=== PATIENT | male | born 1980 | race Caucasian/White ===

== ENCOUNTER 2023-02-11 22:20 | Inpatient (IN) | payer MEDICAID ==
[~2023-02-11] VITALS: Ht 177.8 cm; Wt 63.0 kg
[2023-02-11] MEDS ORDERED: LORAZEPAM 2MG/ML CPJ IV ONE (23:00)
[2023-02-11] MEDS ORDERED: SODIUM CHLORIDE 0.9% 1,000 ML IV ONE (23:00)
[2023-02-11 23:03] LABS: BASOPHILS % 1.4 % (0.0-2.0); EOSINOPHILS % 0.1 % (0.0-5.0); HEMATOCRIT. 40.8 % (42.0-52.0); HEMOGLOBIN. 13.5 g/dL (14.0-18.0); LYMPHOCYTES % 13.3 % (20.0-50.0); MEAN CORPUSCULAR VOLUME 96.4 fL (80.0-94.0); MEAN PLATELET VOLUME 10.2 fl (7.4-10.4); MONOCYTES % 13.4 % (2.0-8.0); NEUTROPHILS % 71.8 % (40.0-76.0); PLATELET 78 x1000/uL (130-400); RED BLOOD CELL COUNT 4.23 mill/uL (4.7-6.1); RED CELL DISTRIBUTION WIDTH 16.2 % (11.6-14.6)
[2023-02-11 23:08] LABS: CHLORIDE 93 mEq/L (98-107)
[2023-02-11 23:15] LABS: ETHANOL BLOOD < 10 mg/dL
[2023-02-11] MEDS ORDERED: POTASSIUM CHLORIDE 20MEQ/PACKET PO NR (23:30)
[2023-02-12] MEDS ORDERED: LORAZEPAM 2MG/ML CPJ IV ONE (01:45)
[2023-02-12] MEDS ORDERED: FOLIC ACID 1 MG, THIAMINE HCL 100 MG, MVI, ADULT NO.1 10 ML in DEXTROSE 5% WATER 1,000 ML IV ONE ×4 (01:45)
[2023-02-12] MEDS ORDERED: LEVETIRACETAM 1,500 MG in SODIUM CHLORIDE 0.9% 100 ML IV SCH (01:45)
[2023-02-12] MEDS ORDERED: LEVETIRACETAM 500 MG in SODIUM CHLORIDE 0.9% 100 ML IV SCH (02:15)
[2023-02-12] MEDS ORDERED: LEVETIRACETAM 1,000 MG in SODIUM CHLORIDE 0.9% 100 ML IV SCH (02:15)
[2023-02-12] MEDS ORDERED: LEVETIRACETAM 500MG PREMIX 100 ML IV NR (02:30)
[2023-02-12] MEDS ORDERED: FOLIC ACID 1 MG, THIAMINE HCL 100 MG, MVI, ADULT NO.1 10 ML in DEXTROSE 5% WATER 1,000 ML IV NR ×4 (02:30)
[2023-02-12] MEDS ORDERED: LEVETIRACETAM 1000MG PREMIX 100 ML IV NR (03:00)
[2023-02-12] MEDS ORDERED: DEXTROSE 50% WATER 50ML SYRINGE IV PRN (08:00)
[2023-02-12] MEDS ORDERED: CLONIDINE 0.1MG TABLET PO PRN (08:00)
[2023-02-12] MEDS ORDERED: IPRATROPIUM/ALBUTEROL 0.5-3(2.5)MG/3ML NEB HHN PRN (08:00)
[2023-02-12] MEDS ORDERED: CHLORDIAZEPOXIDE 25MG CAPSULE PO PRN (08:00)
[2023-02-12] MEDS ORDERED: ACETAMINOPHEN 325MG TABLET PO PRN ×2 (08:00)
[2023-02-12] MEDS ORDERED: MVI, ADULT NO.1 10 ML, FOLIC ACID 1 MG, THIAMINE HCL 100 MG in SODIUM CHLORIDE 0.9% 1,0... IV SCH ×4 (08:00)
[2023-02-12] MEDS ORDERED: ONDANSETRON HCL 4MG/2ML INJ IV PRN (08:00)
[2023-02-12] MEDS ORDERED: KCL 20MEQ/100ML PREMIX 100 ML IV SCH (09:00)
[2023-02-12] MEDS ORDERED: DEXT 5%/0.45% NACL 1000ML 1,000 ML IV SCH (09:00)
[2023-02-12 09:25] LABS: EOSINOPHILS % 0.1 % (0.0-5.0); HEMATOCRIT. 38.8 % (42.0-52.0); LYMPHOCYTES % 16.2 % (20.0-50.0); MEAN CORPUSCULAR VOLUME 95.2 fL (80.0-94.0); MEAN PLATELET VOLUME 10.8 fl (7.4-10.4); MONOCYTES % 12.2 % (2.0-8.0); NEUTROPHILS % 70.5 % (40.0-76.0); PLATELET 80 x1000/uL (130-400); RED BLOOD CELL COUNT 4.08 mill/uL (4.7-6.1); RED CELL DISTRIBUTION WIDTH 16.2 % (11.6-14.6)
[2023-02-12 09:29] LABS: CHLORIDE 97 mEq/L (98-107)
[2023-02-12 09:30] LABS: D-DIMER 0.66 mg/L FEU (<0.50); INR 1.5; PROTHROMBIN TIME 15.3 sec (9.6-11.0)
[2023-02-12 09:36] LABS: AMYLASE 54 IU/L (25-115); GAMMA GLUTAMYL TRANSPEPTIDASE 1245 IU/L (11-50); HDL CHOLESTEROL 56 mg/dL (40-59); LDL CHOLESTEROL 61 mg/dL (5-100); PHOSPHORUS 1.2 mg/dL (2.5-4.9)
[2023-02-12] MEDS: DEXT 5%/0.9% NACL 1,000 ML IV SCH (10:00)
[2023-02-12 10:04] LABS: FOLIC ACID (FOLATE) SERUM 6.1 ng/mL (>5.38)
[2023-02-12 10:12] LABS: CLARITY URINE CLEAR (CLEAR); COLOR URINE YELLOW (YELLOW); KETONES URINE 1+ (NEGATIVE); LEUKOCYTE ESTERASE URINE NEGATIVE (NEGATIVE); NITRITE URINE NEGATIVE (NEGATIVE); OCCULT BLOOD URINE 3+ (NEGATIVE); PROTEIN URINE NEGATIVE (NEGATIVE); SPECIFIC GRAVITY URINE 1.012 (1.005-1.030)
[2023-02-12] MEDS: INSULIN LISPRO 100 UNITS/ML SUBCUT SCH ×4 (10:22→21:00)
[2023-02-12] MEDS: BLOOD SUGAR DIAGNOSTIC STRIP TEST SCH ×4 (10:22→21:02)
[2023-02-12] MEDS ORDERED: POTASSIUM CHLORIDE IV ONE (10:30)
[2023-02-12] MEDS ORDERED: DEXT 5% IV ONE (10:30)
[2023-02-12] MEDS ORDERED: ACETAMINOPHEN 650MG SUPP PR PRN (10:30)
[2023-02-12] MEDS ORDERED: LORAZEPAM 2MG/ML CPJ IV SCH (10:30)
[2023-02-12] MEDS ORDERED: WATER IV ONE (10:30)
[2023-02-12 10:33] LABS: *AMPHETAMINES SCREEN URINE NEGATIVE (NEGATIVE); *BARBITURATES SCREEN URINE NEGATIVE (NEGATIVE); *BENZODIAZEPINES SCREEN URINE NEGATIVE (NEGATIVE); *COCAINE SCREEN URINE NEGATIVE (NEGATIVE); CANNABINOID URINE SCREEN NEGATIVE (NEGATIVE); METHADONE URINE SCREEN NEGATIVE (NEGATIVE); OPIATES URINE SCREEN NEGATIVE (NEGATIVE); PHENCYCLIDINE URINE SCREEN NEGATIVE (NEGATIVE)
[2023-02-12 10:37] LABS: BG BASE EXCESS 2.8 mmol/L (-2.0-2.0); BG CARBOXYHEMOGLOBIN 0.6 % (0.5-1.5); BG DEOXYHEMOGLOBIN 2.4 % (0.0-5.0); BG FRACTION INSPIRED OXYGEN 21; BG HCO3 ACT 24.2 mmol/L (22.0-26.0); BG METHEMOGLOBIN 0.2 % (0.0-1.5); BG OXYGEN SATURATION 97.6 % (92.0-98.5); BG OXYHEMOGLOBIN 96.8 % (94.0-97.0); BG PCO2 28.3 mmHg (35.0-45.0); BG PO2 92.2 mmHg (75.0-100.0); BG SAMPLE SITE RIGHT BRACHIAL; BG TOTAL HEMOGLOBIN 13.3 g/dL (12.0-18.0); BG VENT MODE ROOM AIR
[2023-02-12] MEDS: FAMOTIDINE 20MG/2ML VIAL IV SCH ×2 (10:50→20:48)
[2023-02-12] MEDS: KCL 20MEQ/100ML X 2 FOR TOTAL KCL 40MEQ/200ML IV SCH ×4 (10:50→18:52)
[2023-02-12] MEDS ORDERED: MAGNESIUM 2 G PREMIX 50 ML IV NR (12:00)
[2023-02-12] MEDS ORDERED: LORAZEPAM 2MG/ML CPJ IV PRN (12:15)
[2023-02-12 14:00] VITALS: BP 115/87
[2023-02-12] MEDS: PIPERACILLIN/TAZOBACTAM 3.375 G in DEXTROSE 5% WATER 50 ML IV SCH ×3 (14:36→23:02)
[2023-02-12 14:55] LABS: CREATINE KINASE 617 IU/L (39-308); CREATINE KINASE MB FRACTION 7.6 ng/mL (0.5-3.6)
[2023-02-12] MEDS ORDERED: INFLUENZA VACCINE IM SCH (15:00)
[2023-02-12 15:43] VITALS: BP 115/87
[2023-02-12 16:00] VITALS: BP 132/90
[2023-02-12 20:00] VITALS: BP 140/93
[2023-02-12] MEDS ORDERED: IPRATROPIUM BROMIDE (0.02%) 0.5MG/2.5ML NEB HHN PRN (21:15)
[2023-02-12] MEDS ORDERED: ALBUTEROL (0.083%) 2.5MG/3ML NEB HHN PRN (21:15)
[2023-02-13] VITALS (7 sets, daily range): BP systolic 78–128; BP diastolic 52–93
[2023-02-13 00:13] LABS: CREATINE KINASE MB FRACTION 3.9 ng/mL (0.5-3.6)
[2023-02-13] MEDS: DEXT 5%/0.9% NACL 1,000 ML IV SCH (04:02)
[2023-02-13 07:04] LABS: BASOPHILS % 2.3 % (0.0-2.0); EOSINOPHILS % 0.7 % (0.0-5.0); HEMOGLOBIN. 13.6 g/dL (14.0-18.0); LYMPHOCYTES % 22.1 % (20.0-50.0); MEAN CORPUSCULAR HEMOGLOBIN 32.6 pg (28.0-32.0); MEAN CORPUSCULAR VOLUME 95.5 fL (80.0-94.0); MEAN PLATELET VOLUME 9.8 fl (7.4-10.4); MONOCYTES % 12.8 % (2.0-8.0); NEUTROPHILS % 62.1 % (40.0-76.0); PLATELET 79 x1000/uL (130-400); RED BLOOD CELL COUNT 4.19 mill/uL (4.7-6.1); RED CELL DISTRIBUTION WIDTH 16.1 % (11.6-14.6)
[2023-02-13 07:25] LABS: CHLORIDE 101 mEq/L (98-107)
[2023-02-13 07:41] LABS: PHOSPHORUS 2.2 mg/dL (2.5-4.9); T4 FREE 1.51 ng/dL (0.76-1.46)
[2023-02-13] MEDS: INSULIN LISPRO 100 UNITS/ML SUBCUT SCH ×4 (07:51→21:00)
[2023-02-13] MEDS: BLOOD SUGAR DIAGNOSTIC STRIP TEST SCH ×5 (07:51→21:03)
[2023-02-13] MEDS ORDERED: MVI, ADULT NO.1 10 ML, FOLIC ACID 1 MG, THIAMINE HCL 100 MG in SODIUM CHLORIDE 0.9% 1,0... IV SCH ×4 (09:00)
[2023-02-13] MEDS: FAMOTIDINE 20MG/2ML VIAL IV SCH (09:26)
[2023-02-13] MEDS: FOLIC ACID 1MG TABLET PO SCH (09:27)
[2023-02-13] MEDS: CHLORDIAZEPOXIDE 25MG CAPSULE PO SCH ×3 (09:27→22:20)
[2023-02-13] MEDS: THIAMINE HCL 100MG TABLET PO SCH (09:27)
[2023-02-13] MEDS: MULTIVITAMINS,THER W-MINERALS TABLET PO SCH (09:27)
[2023-02-13] MEDS ORDERED: POTASSIUM PHOS,M-BASIC-D-BASIC 30 MMOL in DEXT 5% WATER 500 ML IV NR (10:00)
[2023-02-13] MEDS: PIPERACILLIN/TAZOBACTAM 3.375 G in DEXTROSE 5% WATER 50 ML IV SCH ×2 (14:07→22:20)
[2023-02-13] MEDS: KCL 20MEQ/100ML PREMIX 100 ML IV SCH ×3 (16:51→20:26)
[2023-02-13] MEDS: FAMOTIDINE 20MG TABLET PO SCH (21:01)
[2023-02-14] VITALS: BP 119/83
[2023-02-14] MEDS: KCL 20MEQ/100ML PREMIX 100 ML IV SCH ×3 (00:19→18:07)
[2023-02-14 04:00] VITALS: BP 112/82
[2023-02-14] MEDS: CHLORDIAZEPOXIDE 25MG CAPSULE PO SCH (06:36)
[2023-02-14] MEDS: PIPERACILLIN/TAZOBACTAM 3.375 G in DEXTROSE 5% WATER 50 ML IV SCH ×3 (06:39→23:18)
[2023-02-14 08:00] VITALS: BP 113/87
[2023-02-14] MEDS: INSULIN LISPRO 100 UNITS/ML SUBCUT SCH ×4 (08:10→22:30)
[2023-02-14] MEDS: THIAMINE HCL 100MG TABLET PO SCH (09:49)
[2023-02-14] MEDS: FAMOTIDINE 20MG TABLET PO SCH ×2 (09:49→22:19)
[2023-02-14] MEDS: MULTIVITAMINS,THER W-MINERALS TABLET PO SCH (09:49)
[2023-02-14] MEDS: FOLIC ACID 1MG TABLET PO SCH (09:49)
[2023-02-14 11:56] LABS: PHOSPHORUS 3.1 mg/dL (2.5-4.9)
[2023-02-14 12:00] VITALS: BP 113/81
[2023-02-14] MEDS ORDERED: POTASSIUM CHLORIDE 20MEQ TABLET SR PO NR (12:30)
[2023-02-14] MEDS: BLOOD SUGAR DIAGNOSTIC STRIP TEST SCH ×3 (12:47→22:28)
[2023-02-14] MEDS: CHLORDIAZEPOXIDE 10MG CAPSULE PO SCH ×2 (15:01→22:19)
[2023-02-14 16:00] VITALS: BP 134/81
[2023-02-14 20:15] VITALS: BP 129/80
[2023-02-15] VITALS (7 sets, daily range): BP systolic 115–124; BP diastolic 70–84
[2023-02-15] MEDS: PIPERACILLIN/TAZOBACTAM 3.375 G in DEXTROSE 5% WATER 50 ML IV SCH ×2 (06:15→14:00)
[2023-02-15] MEDS: CHLORDIAZEPOXIDE 10MG CAPSULE PO SCH ×2 (06:15→15:22)
[2023-02-15] MEDS: BLOOD SUGAR DIAGNOSTIC STRIP TEST SCH ×3 (06:33→17:40)
[2023-02-15 07:51] LABS: PHOSPHORUS 2.8 mg/dL (2.5-4.9)
[2023-02-15] MEDS: INSULIN LISPRO 100 UNITS/ML SUBCUT SCH (08:10)
[2023-02-15] MEDS: FAMOTIDINE 20MG TABLET PO SCH (09:32)
[2023-02-15] MEDS: FOLIC ACID 1MG TABLET PO SCH (09:33)
[2023-02-15] MEDS: MULTIVITAMINS,THER W-MINERALS TABLET PO SCH (09:33)
[2023-02-15] MEDS: THIAMINE HCL 100MG TABLET PO SCH (09:34)
[2023-02-15] MEDS ORDERED: MULT-624 MT (10:23)
[2023-02-15] MEDS ORDERED: FOLI-43 MT (10:23)
[2023-02-15] MEDS ORDERED: THIA50TA12 MT (10:23)
== END 2023-02-15 20:55 | disposition home or self-care (01) | DRG 53 ==
LOC: ER 22:20 → EDBD 02-12 04:46 → 7WST 02-12 04:46 → ENRESERV 02-12 11:19
PROVIDERS: ADMIT Internal Medicine; ATTEND Internal Medicine
DX: G40.909 Epilepsy, unspecified, not intractable, without status epilepticus (principal); J69.0 Pneumonitis due to inhalation of food and vomit; D69.6 Thrombocytopenia, unspecified; D68.9 Coagulation defect, unspecified; E87.1 Hypo-osmolality and hyponatremia; F10.239 Alcohol dependence with withdrawal, unspecified; E87.6 Hypokalemia; F17.200 Nicotine dependence, unspecified, uncomplicated; R74.01 Elevation of levels of liver transaminase levels; G40.509 Epileptic seizures related to external causes, not intractable, without status epilepticus; I10 Essential (primary) hypertension; R32 Unspecified urinary incontinence; Z20.822 Contact with and (suspected) exposure to COVID-19
CPT/HCPCS: 36415; 36600; 71045; 80053; 80061; 80305; 80320; 81003; 82140; 82150; 82375; 82550; 82553; 82607; 82746; 82805; 82962; 82977; 83036; 83605; 83735; 83880; 84100; 84132; 84439; 84443; 84481; 84484; 85025; 85379; 90686; 92610; 93880; 93970; 97162; 99285; J1815; J1953; J2060; J2543; J3411; J3480; J3490; J7030; J7050; J7060; J7070; G0480

== ENCOUNTER 2023-10-21 08:17 | Inpatient (IN) | payer SELFPAY ==
[~2023-10-21] VITALS: Ht 165.1 cm; Wt 60.8 kg
[~2023-10-21 08:17] MED LIST: FOLI-43 MT; MULT-624 MT; THIA50TA12 MT
[2023-10-21 08:59] LABS: BASOPHILS % 3.3 % (0.0-2.0); EOSINOPHILS % 0.9 % (0.0-5.0); HEMATOCRIT. 39.3 % (42.0-52.0); LYMPHOCYTES % 17.9 % (20.0-50.0); MEAN CORPUSCULAR HEMOGLOBIN 31.8 pg (28.0-32.0); MEAN CORPUSCULAR HGB CONC 33.2 g/dL (31.0-37.0); MEAN CORPUSCULAR VOLUME 95.9 fL (80.0-94.0); MEAN PLATELET VOLUME 10.1 fl (7.4-10.4); MONOCYTES % 10.8 % (2.0-8.0); NEUTROPHILS % 67.1 % (40.0-76.0); PLATELET 73 x1000/uL (130-400); RED CELL DISTRIBUTION WIDTH 17.2 % (11.6-14.6); WHITE BLOOD COUNT 6.3 x1000/uL (4.5-11.0)
[2023-10-21 09:25] LABS: ALANINE AMINOTRANSFERASE 50 IU/L (10-49); ALBUMIN 4.3 g/dL (3.2-4.8); ASPARTATE AMINOTRANSFERASE 211 IU/L (<34); BILIRUBIN TOTAL 2.7 mg/dL (0.1-1.0); CARBON DIOXIDE 27 mEq/L (21-32); CHLORIDE 98 mEq/L (98-107); CREATININE 0.8 mg/dL (0.6-1.3); GLUCOSE 123 mg/dL (70-105); POTASSIUM 3.3 mEq/L (3.5-5.1); PROTEIN TOTAL 7.6 g/dL (6.0-8.3); SODIUM 135 mEq/L (136-145)
[2023-10-21] MEDS ORDERED: MAGNESIUM/ALUMINUM HYDROXIDE/SIMETHICONE 30ML UDC PO STA (10:00)
[2023-10-21] MEDS ORDERED: ACETAMINOPHEN 325MG TABLET PO STA (10:00)
[2023-10-21] MEDS ORDERED: DICYCLOMINE 10 MG/5 ML ORAL SYR PO STA (10:00)
[2023-10-21 10:10] LABS: UREA NITROGEN BLOOD < 5 mg/dL (9-23)
[2023-10-21] MEDS ORDERED: KETOROLAC 60MG/2ML VIAL IM ONE (13:30)
[2023-10-21] MEDS ORDERED: KETOROLAC 30MG/ML VIAL IV STA (13:42)
[2023-10-21] MEDS ORDERED: SODIUM CHLORIDE 0.9% 1,000 ML IV ONE (13:45)
[2023-10-21] MEDS ORDERED: LEVETIRACETAM 500MG PREMIX 100 ML IV ONE (15:15)
[2023-10-21] MEDS ORDERED: LORAZEPAM 2MG/ML CPJ IV ONE ×2 (15:15→16:45)
[2023-10-21 15:22] LABS: CLARITY URINE TURBID (CLEAR); COLOR URINE ORANGE (YELLOW); GLUCOSE URINE NEGATIVE (NEGATIVE); KETONES URINE 2+ (NEGATIVE); LEUKOCYTE ESTERASE URINE 2+ (NEGATIVE); NITRITE URINE POSITIVE (NEGATIVE); OCCULT BLOOD URINE 2+ (NEGATIVE); PH URINE 8.5 (4.5-8.0); PROTEIN URINE 2+ (NEGATIVE)
[2023-10-21] MEDS ORDERED: LORAZEPAM 4MG/ML VIAL IV NR ×2 (15:45→17:45)
[2023-10-21 16:01] LABS: BACTERIA URINE 1+; RBC URINE TNTC /hpf (0-2); SQUAMOUS EPITHELIAL CELL URINE FEW /lpf (RARE/1+); WBC URINE 15-25 /hpf (0-2)
[2023-10-21] MEDS ORDERED: CEFTRIAXONE 1GM PREMIX 50 ML IV ONE (16:45)
[2023-10-21] MEDS ORDERED: IPRATROPIUM/ALBUTEROL 0.5-3(2.5)MG/3ML NEB HHN PRN (20:30)
[2023-10-21] MEDS ORDERED: LORAZEPAM 2MG/ML CPJ IV PRN (20:30)
[2023-10-21] MEDS ORDERED: ONDANSETRON HCL 4MG/2ML INJ IV PRN (20:30)
[2023-10-21] MEDS ORDERED: MVI, ADULT NO.1 10 ML, FOLIC ACID 1 MG, THIAMINE HCL 100 MG in SODIUM CHLORIDE 0.9% 1,0... IV SCH ×4 (20:30)
[2023-10-21] MEDS ORDERED: CLONIDINE 0.1MG TABLET PO PRN (20:30)
[2023-10-21] MEDS ORDERED: DOCUSATE SODIUM 100MG CAPSULE PO PRN (20:30)
[2023-10-21] MEDS ORDERED: GUAIFENESIN 200MG/10ML SUGAR FREE UDC PO PRN (20:30)
[2023-10-21] MEDS ORDERED: MAGNESIUM/ALUMINUM HYDROXIDE/SIMETHICONE 30ML UDC PO PRN (20:30)
[2023-10-21] MEDS ORDERED: ACETAMINOPHEN 650MG/20.3ML UDC GT PRN ×2 (20:30)
[2023-10-21] MEDS: LORAZEPAM 4MG/ML VIAL IV NR ×2 (20:36→23:57)
[2023-10-21] MEDS ORDERED: KCL 20MEQ/100ML PREMIX 100 ML IV NR (21:00)
[2023-10-21] MEDS ORDERED: MVI, ADULT NO.1 10 ML, FOLIC ACID 1 MG, THIAMINE HCL 100 MG in SODIUM CHLORIDE 0.9% 1,0... IV ONE ×4 (21:30)
[2023-10-21 22:03] VITALS: BP 132/97; PULSE 108; RESP 18; TEMP 97.8
[2023-10-21] MEDS: CHLORDIAZEPOXIDE 25MG CAPSULE PO SCH ×2 (23:00→23:08)
[2023-10-22] VITALS: BP 136/105; PULSE 117; RESP 18; TEMP 99.5
[2023-10-22 01:18] LABS: CREATINE KINASE 413 IU/L (46-171); GAMMA GLUTAMYL TRANSPEPTIDASE 1215 IU/L (<73); IRON 63 ug/dL (65-175); TOTAL IRON BINDING CAPACITY 354 ug/dl (250-425); TROPONIN I HIGH SENSITIVITY 4 ng/L (3.0-53); URIC ACID 4.9 mg/dL (3.7-9.2)
[2023-10-22 01:22] LABS: FOLIC ACID (FOLATE) SERUM 9.07 ng/mL (>5.38); VITAMIN B12 SERUM 734 pg/mL (211-911)
[2023-10-22 01:59] LABS: PHOSPHORUS 2.1 mg/dL (2.5-4.9)
[2023-10-22] MEDS ORDERED: DIAZEPAM 5 MG/ML 2ML CPJ IV NR (03:00)
[2023-10-22 04:00] VITALS: BP 154/87; PULSE 92; RESP 17; TEMP 98.7
[2023-10-22] MEDS ORDERED: CHLORDIAZEPOXIDE 25MG CAPSULE PO SCH (04:30)
[2023-10-22] MEDS: CHLORDIAZEPOXIDE 25MG CAPSULE PO SCH ×3 (06:00→22:00)
[2023-10-22 07:20] LABS: EOSINOPHILS % 1.5 % (0.0-5.0); HEMATOCRIT. 36.1 % (42.0-52.0); HEMOGLOBIN. 11.9 g/dL (14.0-18.0); LYMPHOCYTES % 20.2 % (20.0-50.0); MEAN CORPUSCULAR HGB CONC 32.8 g/dL (31.0-37.0); MEAN CORPUSCULAR VOLUME 97.6 fL (80.0-94.0); MEAN PLATELET VOLUME 10.7 fl (7.4-10.4); MONOCYTES % 12.4 % (2.0-8.0); NEUTROPHILS % 63.9 % (40.0-76.0); PLATELET 79 x1000/uL (130-400); RED CELL DISTRIBUTION WIDTH 17.1 % (11.6-14.6); WHITE BLOOD COUNT 6.8 x1000/uL (4.5-11.0)
[2023-10-22 07:41] LABS: ALANINE AMINOTRANSFERASE 49 IU/L (10-49); ASPARTATE AMINOTRANSFERASE 195 IU/L (<34); CALCIUM 9.3 mg/dL (8.7-10.4); CARBON DIOXIDE 25 mEq/L (21-32); CHLORIDE 104 mEq/L (98-107); CHOLESTEROL 175 mg/dL (<200); CREATININE 0.6 mg/dL (0.6-1.3); GLUCOSE 68 mg/dL (70-105); HDL CHOLESTEROL 64 mg/dL (>55); LDL CHOLESTEROL 102 mg/dL (5-100); POTASSIUM 3.2 mEq/L (3.5-5.1); PROTEIN TOTAL 7.6 g/dL (6.0-8.3); SODIUM 142 mEq/L (136-145); T4 FREE 1.46 ng/dL (0.89-1.76); THYROID STIMULATING HORMONE 3.22 uIU/mL (0.55-4.78); TRIGLYCERIDE 91 mg/dL (0-150); UREA NITROGEN BLOOD 8 mg/dL (9-23)
[2023-10-22 07:44] LABS: URIC ACID 5.2 mg/dL (3.7-9.2)
[2023-10-22 07:53] LABS: BILIRUBIN TOTAL 3.7 mg/dL (0.1-1.0)
[2023-10-22 08:00] VITALS: BP 136/94; PULSE 98; RESP 12; TEMP 98.5
[2023-10-22] MEDS ORDERED: MULTIVITAMINS,THER W-MINERALS TABLET PO SCH (09:00)
[2023-10-22] MEDS ORDERED: THIAMINE HCL 100MG TABLET PO SCH (09:00)
[2023-10-22] MEDS: MULTIVITAMINS,THER W-MINERALS TABLET PO SCH (09:00)
[2023-10-22] MEDS: FOLIC ACID 1MG TABLET PO SCH (09:00)
[2023-10-22] MEDS: THIAMINE HCL 100MG TABLET PO SCH ×3 (09:00→17:00)
[2023-10-22] MEDS: LACTATED RINGERS 1,000 ML IV SCH ×2 (10:37→20:21)
[2023-10-22] MEDS ORDERED: LORAZEPAM 4MG/ML VIAL IV PRN (10:52)
[2023-10-22 12:00] VITALS: BP 154/131; PULSE 87; RESP 16; TEMP 98.6
[2023-10-22 16:00] VITALS: BP 143/96; PULSE 74; RESP 14; TEMP 99.2
[2023-10-22] MEDS: LORAZEPAM 4MG/ML VIAL IV PRN ×3 (18:09→22:27)
[2023-10-22] MEDS: CEFTRIAXONE 1,000 MG in DEXTROSE 5% WATER 50 ML IV SCH (18:29)
[2023-10-22] MEDS ORDERED: MAGNESIUM 2 G PREMIX 50 ML IV NR (18:30)
[2023-10-22 20:12] VITALS: BP 149/99; PULSE 84; RESP 20; TEMP 97.8
[2023-10-22] MEDS: FAMOTIDINE 20MG TABLET PO SCH (20:34)
[2023-10-23 00:01] VITALS: BP 156/116; PULSE 75; RESP 20; TEMP 98.5
[2023-10-23] MEDS: LORAZEPAM 4MG/ML VIAL IV PRN (03:27)
[2023-10-23 04:00] VITALS: BP 138/97; PULSE 80; RESP 27; TEMP 98.6
[2023-10-23] MEDS: LACTATED RINGERS 1,000 ML IV SCH ×2 (05:48→14:05)
[2023-10-23] MEDS: CHLORDIAZEPOXIDE 25MG CAPSULE PO SCH ×3 (06:00→20:59)
[2023-10-23 08:00] VITALS: PULSE 96; RESP 21; TEMP 99
[2023-10-23] MEDS: MULTIVITAMINS,THER W-MINERALS TABLET PO SCH (09:00)
[2023-10-23] MEDS: FOLIC ACID 1MG TABLET PO SCH (09:00)
[2023-10-23] MEDS: THIAMINE HCL 100MG TABLET PO SCH ×3 (09:00→17:00)
[2023-10-23 09:34] LABS: BASOPHILS % 2.4 % (0.0-2.0); EOSINOPHILS % 2.4 % (0.0-5.0); HEMATOCRIT. 35.9 % (42.0-52.0); HEMOGLOBIN. 11.9 g/dL (14.0-18.0); LYMPHOCYTES % 22.9 % (20.0-50.0); MEAN CORPUSCULAR HEMOGLOBIN 32.2 pg (28.0-32.0); MEAN CORPUSCULAR HGB CONC 33.2 g/dL (31.0-37.0); MEAN PLATELET VOLUME 10.8 fl (7.4-10.4); MONOCYTES % 13.5 % (2.0-8.0); NEUTROPHILS % 58.8 % (40.0-76.0); PLATELET 98 x1000/uL (130-400); RED CELL DISTRIBUTION WIDTH 16.5 % (11.6-14.6); WHITE BLOOD COUNT 6.8 x1000/uL (4.5-11.0)
[2023-10-23 09:43] LABS: CALCIUM 9.1 mg/dL (8.7-10.4); CARBON DIOXIDE 23 mEq/L (21-32); CHLORIDE 98 mEq/L (98-107); CREATININE 0.6 mg/dL (0.6-1.3); GLUCOSE 50 mg/dL (70-105); PHOSPHORUS 3.1 mg/dL (2.5-4.9); SODIUM 138 mEq/L (136-145)
[2023-10-23 10:12] LABS: UREA NITROGEN BLOOD < 5 mg/dL (9-23)
[2023-10-23 12:00] VITALS: BP 126/95; PULSE 86; RESP 16; TEMP 98.3
[2023-10-23] MEDS: LEVETIRACETAM 500MG PREMIX 100 ML IV SCH ×2 (13:09→21:00)
[2023-10-23] MEDS ORDERED: POTASSIUM CHLORIDE INJ 40 MEQ in DEXT 5% WATER 250 ML IV ONE (15:30)
[2023-10-23 16:00] VITALS: BP 129/97; PULSE 85; RESP 22; TEMP 97.6
[2023-10-23] MEDS ORDERED: INFLUENZA VACCINE 05/PF 0.5 ML SYRINGE IM ONE (16:00)
[2023-10-23] MEDS: CEFTRIAXONE 1,000 MG in DEXTROSE 5% WATER 50 ML IV SCH (16:29)
[2023-10-23] MEDS ORDERED: KCL 20MEQ/100ML X 2 FOR TOTAL KCL 40MEQ/200ML IV SCH ×2 (16:30→22:45)
[2023-10-23 20:00] VITALS: BP 132/92; PULSE 60; RESP 20; TEMP 98.4
[2023-10-23] MEDS: FAMOTIDINE 20MG TABLET PO SCH (20:58)
[2023-10-23 21:00] LABS: CREATINE KINASE 301 IU/L (46-171)
[2023-10-24] VITALS: BP 145/97; PULSE 88; RESP 20; TEMP 98.7
[2023-10-24] MEDS: LACTATED RINGERS 1,000 ML IV SCH (01:06)
[2023-10-24 04:00] VITALS: BP 133/89; PULSE 65; RESP 16; TEMP 97.4
[2023-10-24 08:00] VITALS: BP 125/75; PULSE 77; RESP 22; TEMP 98
[2023-10-24 08:24] LABS: BASOPHILS % 2.8 % (0.0-2.0); EOSINOPHILS % 4.4 % (0.0-5.0); LYMPHOCYTES % 27.6 % (20.0-50.0); MEAN CORPUSCULAR HEMOGLOBIN 32.2 pg (28.0-32.0); MEAN CORPUSCULAR VOLUME 97.6 fL (80.0-94.0); MEAN PLATELET VOLUME 10.8 fl (7.4-10.4); MONOCYTES % 12.2 % (2.0-8.0); PLATELET 113 x1000/uL (130-400); RED BLOOD CELL COUNT 4.25 mill/uL (4.7-6.1); RED CELL DISTRIBUTION WIDTH 16.7 % (11.6-14.6); WHITE BLOOD COUNT 5.5 x1000/uL (4.5-11.0)
[2023-10-24 08:49] LABS: HEMATOCRIT. 41.5 % (42.0-52.0); HEMOGLOBIN. 13.7 g/dL (14.0-18.0)
[2023-10-24] MEDS: FOLIC ACID 1MG TABLET PO SCH (08:54)
[2023-10-24] MEDS: LEVETIRACETAM 500MG PREMIX 100 ML IV SCH (08:54)
[2023-10-24] MEDS: THIAMINE HCL 100MG TABLET PO SCH (08:55)
[2023-10-24] MEDS: MULTIVITAMINS,THER W-MINERALS TABLET PO SCH (08:55)
[2023-10-24] MEDS: CHLORDIAZEPOXIDE 25MG CAPSULE PO SCH (08:55)
[2023-10-24 09:59] LABS: CALCIUM 9.8 mg/dL (8.7-10.4); CARBON DIOXIDE 24 mEq/L (21-32); CHLORIDE 98 mEq/L (98-107); CREATININE 0.6 mg/dL (0.6-1.3); GLUCOSE 57 mg/dL (70-105); PHOSPHORUS 3.9 mg/dL (2.5-4.9); POTASSIUM 3.1 mEq/L (3.5-5.1); SODIUM 138 mEq/L (136-145)
[2023-10-24 10:20] LABS: UREA NITROGEN BLOOD < 5 mg/dL (9-23)
[2023-10-24] MEDS ORDERED: THIA50TA12 MT (10:52)
[2023-10-24] MEDS ORDERED: FOLI-43 MT (10:52)
[2023-10-24] MEDS ORDERED: MULT-624 MT (10:52)
[2023-10-24 10:57] VITALS: BP 141/80; PULSE 79; TEMP 98.9; O2SAT 98
== END 2023-10-24 16:57 | disposition home or self-care (01) | DRG 53 ==
LOC: ER 08:17 → MICUSO 17:13 → EDBEDREQ 17:15 → 3WST 22:03
PROVIDERS: ADMIT Internal Medicine; ATTEND Internal Medicine
DX: G40.89 Other seizures (principal); G92.8 Other toxic encephalopathy; D69.6 Thrombocytopenia, unspecified; K76.0 Fatty (change of) liver, not elsewhere classified; E87.1 Hypo-osmolality and hyponatremia; R10.31 Right lower quadrant pain; F10.239 Alcohol dependence with withdrawal, unspecified; N20.2 Calculus of kidney with calculus of ureter; N39.0 Urinary tract infection, site not specified; E87.6 Hypokalemia; D69.59 Other secondary thrombocytopenia; D53.9 Nutritional anemia, unspecified; R73.9 Hyperglycemia, unspecified; E83.42 Hypomagnesemia; R74.01 Elevation of levels of liver transaminase levels; Z78.1 Physical restraint status; Y90.9 Presence of alcohol in blood, level not specified
CPT/HCPCS: 36415; 71045; 74176; 80048; 80053; 80061; 81003; 82550; 82607; 82728; 82746; 82977; 83036; 83540; 83550; 83735; 84100; 84439; 84443; 84484; 84550; 85025; 93005; 99291; J0696; J1885; J1953; J2060; J3411; J3475; J3480; J3490; J7030; J7060; J7120